=== PATIENT | male | born 1940 | race Caucasian/White ===

== ENCOUNTER → 2016-10-28 | Outpatient (CLI) | payer MEDICARE | END | disposition home or self-care (01) | LOC: PCVCIMAG 11:15 | PROVIDERS: ATTEND Internal Medicine Cardiovascular Disease | DX: I65.23 Occlusion and stenosis of bilateral carotid arteries (principal); I25.5 Ischemic cardiomyopathy; I10 Essential (primary) hypertension; E78.00 Pure hypercholesterolemia, unspecified | CPT/HCPCS: 93880 ==

== ENCOUNTER → 2016-10-29 | Outpatient (CLI) | payer MEDICARE | END | disposition home or self-care (01) | LOC: PCVCIMAG 08:54 | PROVIDERS: ATTEND Internal Medicine Cardiovascular Disease | DX: I25.10 Atherosclerotic heart disease of native coronary artery without angina pectoris (principal); I10 Essential (primary) hypertension; I25.5 Ischemic cardiomyopathy; E78.00 Pure hypercholesterolemia, unspecified; I65.29 Occlusion and stenosis of unspecified carotid artery; K55.9 Vascular disorder of intestine, unspecified; I74.8 Embolism and thrombosis of other arteries; R06.00 Dyspnea, unspecified; R55 Syncope and collapse; Z95.1 Presence of aortocoronary bypass graft | CPT/HCPCS: 80061; 93005; 93306; G0463 ==

== ENCOUNTER → 2016-11-03 | Outpatient (CLI) | payer MEDICARE ==
[~2016-11-03] MED LIST: DIAZEPAM 10 MG TABLET ONE; FENTANYL PF 100 MCG/2 ML VIAL. ONE; HEPARIN 5,000 UNIT/ML VIAL for PCVC ONE; HEPARIN for ARTERIAL LINE 1,500 ML ONE; IOHEXOL 300 MG/ML 100ML VIAL. ONE; IOHEXOL 350 MG/ML 100ML VIAL. ONE; IV NORMAL SALINE 1000ML BAG 1,000 ML ONE; LIDOCAINE 1% Multi-Dose 20 ML VIAL. ONE; MIDAZOLAM HCL 2 MG/2 ML VIAL. ONE; hydrALAZINE 20 MG/ML VIAL. ONE
== END | disposition home or self-care (01) ==
LOC: PCVCINTER 08:28
PROVIDERS: ATTEND Nuclear Medicine Nuclear Cardiology
DX: I70.213 Atherosclerosis of native arteries of extremities with intermittent claudication, bilateral legs (principal); I15.0 Renovascular hypertension; I70.1 Atherosclerosis of renal artery; I65.23 Occlusion and stenosis of bilateral carotid arteries; I70.0 Atherosclerosis of aorta; I25.10 Atherosclerotic heart disease of native coronary artery without angina pectoris; I42.9 Cardiomyopathy, unspecified; I10 Essential (primary) hypertension; I25.5 Ischemic cardiomyopathy; K55.9 Vascular disorder of intestine, unspecified; I74.8 Embolism and thrombosis of other arteries; E78.00 Pure hypercholesterolemia, unspecified; R06.00 Dyspnea, unspecified; R55 Syncope and collapse
CPT/HCPCS: 36223; 36225; 36245; 36252; 75630; 75726; 76937; 93459; C1751; C1760; C1769; C1894; J0360; J2250; J3010; J7030; Q9967; J1644

== ENCOUNTER → 2017-08-11 | Outpatient (CLI) | payer MEDICARE | END | disposition home or self-care (01) | LOC: PCVCCLINIC 09:30 | PROVIDERS: ATTEND Internal Medicine Cardiovascular Disease | DX: I25.10 Atherosclerotic heart disease of native coronary artery without angina pectoris (principal); I25.5 Ischemic cardiomyopathy; I10 Essential (primary) hypertension; E78.00 Pure hypercholesterolemia, unspecified; I65.29 Occlusion and stenosis of unspecified carotid artery; D64.9 Anemia, unspecified; R94.31 Abnormal electrocardiogram [ECG] [EKG]; I45.10 Unspecified right bundle-branch block; I45.2 Bifascicular block; Z87.891 Personal history of nicotine dependence; Z79.899 Other long term (current) drug therapy | CPT/HCPCS: 80061; 93005; G0463 ==

== ENCOUNTER → 2017-11-02 | Outpatient (CLI) | payer MEDICARE | END | disposition home or self-care (01) | LOC: PCVCCLINIC 11:38 | DX: I25.10 Atherosclerotic heart disease of native coronary artery without angina pectoris (principal); I10 Essential (primary) hypertension; I25.5 Ischemic cardiomyopathy; E78.00 Pure hypercholesterolemia, unspecified; I35.0 Nonrheumatic aortic (valve) stenosis; R94.31 Abnormal electrocardiogram [ECG] [EKG]; I45.10 Unspecified right bundle-branch block; Z87.891 Personal history of nicotine dependence; Z79.899 Other long term (current) drug therapy | CPT/HCPCS: 80061; 93005; 93880; G0463 ==

== ENCOUNTER → 2017-11-24 | Outpatient (CLI) | payer MEDICARE | END | disposition home or self-care (01) | LOC: PCVCCLINIC 12:04 | DX: I25.709 Atherosclerosis of coronary artery bypass graft(s), unspecified, with unspecified angina pectoris (principal); R07.9 Chest pain, unspecified; I42.9 Cardiomyopathy, unspecified; I10 Essential (primary) hypertension; E78.00 Pure hypercholesterolemia, unspecified; I65.29 Occlusion and stenosis of unspecified carotid artery; Z95.1 Presence of aortocoronary bypass graft; Z87.891 Personal history of nicotine dependence; Z79.899 Other long term (current) drug therapy | CPT/HCPCS: 93005; G0463 ==

== ENCOUNTER → 2018-04-29 | Outpatient (CLI) | payer MEDICARE ==
[~2018-04-29] MED LIST changes: -DIAZEPAM 10 MG TABLET ONE; -FENTANYL PF 100 MCG/2 ML VIAL. ONE; -HEPARIN 5,000 UNIT/ML VIAL for PCVC ONE; -HEPARIN for ARTERIAL LINE 1,500 ML ONE; -IOHEXOL 300 MG/ML 100ML VIAL. ONE; -IOHEXOL 350 MG/ML 100ML VIAL. ONE; -IV NORMAL SALINE 1000ML BAG 1,000 ML ONE; -LIDOCAINE 1% Multi-Dose 20 ML VIAL. ONE; -MIDAZOLAM HCL 2 MG/2 ML VIAL. ONE; +REGADENOSON 0.4 MG/5 ML DISP.SYRIN. IV ONE; -hydrALAZINE 20 MG/ML VIAL. ONE
--- NOTE | 2018-04-30 12:30 | PCVCIMAG ---
APPROVED REPORT Imaging Protocol: Rest Tc-99m/Stress Tc-99m 1 day Study performed: 04/29/2018 08:33:07 Indication: Chest pain with exertion, CAD, Abnormal EKG Patient Location: Out-Patient Stress Nurse: Gayle Paul RN, Soraya Jaffe RN DE Tech:JORDAN Sheikh Ht: 5 ft 10 in Wt: 180 lbs BSA: 2.00 m2 HR: 65 bpm BP: 200/90 mmHg BMI: 25.8 Rhythm: NSR, RBBB Medical History Medications: Atorvastin, Plavix, Ranexa Allergies: NTG Cardiac Risk Factors: Age, HTN, Hyperlipidemia, Tobacco History (Former), CAD, CVD Previous Cardiac Procedures: CABG MCNEAL-LAD, SVG-OM OM2, [place] Circ Intact from Heart Cath 2016 Pretest Chest Pain Characteristics: No chest pain Exercise History: Physically active Physical Disabilities: Legs Resting Data Rest SPECT myocardial perfusion imaging was performed in supine position 45 minutes following the intravenous injection of 11.7 mCi of Tc-99m Sestamibi. Time of rest injection: 829 Date: 04/29/2018 Administration Route: IV Administration Site: Right Hand Pharmacologic Stress Pharmacologic stress test was performed by injecting Regadenoson 0.4 mg IV push over 10-15 seconds immediately followed by the intravenous injection of 30.6 mCi of Tc-99m Sestamibi. Time of stress injection: 954 Date: 04/29/2018 Administration Route: IV Administration Site: Right Hand Gated Stress SPECT was performed 45 minutes after stress injection. The images were gated to evaluate regional wall motion and calculate left ventricular ejection fraction. Comments PRIOR NUC 07/2016: 1. SCINTIGRAPHIC EVIDENCE OF A LARGE REVERSIBLE LATERAL WALL DEFECT ASSOCIATED WITH WALL M OTION ABNORMALITIES CONSISTENT WITH ISCHEMIA 2. PRESERVED LVEF WITH INFEROLATERAL HYPOKINESIS Stress Test Details Stress Test: Pharmacologic stress was paired with low level exercise. HRMax Heart Rate (APMHR): 142 bpm Resting HR: 65 bpmTarget HR (85% APMHR): 120 bpm Max HR Achieved: 97 bpm % of APMHR: 68 Recovery HR: 80 bpm BP Resting BP: 200/90 mmHg Recovery BP: 169/78 mmHg ECG Resting ECG: Sinus Rhythm, RBBB Stress ECG: Sinus Rhythm, RBBB Arrhythmia: PVCs Recovery ECG: Sinus Rhythm, RBBB Clinical Reason for Termination: Completed protocol Stress Symptoms: Chest pain("tight", 3/10) Exercise duration: 4 min 00 sec Symptoms resolved with caffeine. Nurse Comments Reports chest tightness that resolved on recovery. Stress ECG Conclusion ECG: Non-ischemic Study Quality Study: Good Study Data Post stress, the left ventricular ejection was 53%.. SSS: 8 SRS: 1 SDS: 7 TID = 0.93. Perfusion Large sized area of moderate reversible ischemia involving the lateral/inferolateral left ventricle consistent with a circumflex distribution. Wall Motion Normal left ventricular size and function with no regional wall motion abnormalities. Nuclear Conclusion Large sized area of moderate reversible ischemia involving the lateral/inferolateral left ventricle consistent with a circumflex distribution has increased in area since July 2016. Normal left ventricular size and function with no regional wall motion abnormalities. Post stress, the left ventricular ejection was 53%. Interpreted by: Mateo Saldaña MD Electronically Approved: 04/29/2018 17:38:57 <Conclusion> ECG: Non-ischemic
== END | disposition home or self-care (01) ==
LOC: PCVCIMAG 12:51
PROVIDERS: ATTEND Internal Medicine Cardiovascular Disease
DX: I25.10 Atherosclerotic heart disease of native coronary artery without angina pectoris (principal); R07.9 Chest pain, unspecified; I10 Essential (primary) hypertension; E78.5 Hyperlipidemia, unspecified; R94.31 Abnormal electrocardiogram [ECG] [EKG]; Z87.891 Personal history of nicotine dependence
CPT/HCPCS: 78452; 93017; A9500; J2785

== ENCOUNTER → 2018-08-25 | Outpatient (CLI) | payer MEDICARE ==
--- NOTE | 2018-08-25 11:10 | PCVCIMAG ---
APPROVED REPORT Study performed: 08/25/2018 09:08:51 EXAM: Comprehensive 2D, Doppler, and color-flow Echocardiogram Patient Location: Echo lab Room #: 2Status: routine BSA: 1.97 HR: 65 bpm Rhythm: NSR with PACs Other Information Study Quality: Good Risk Factors: Cardiac Risk Factors: HTN, HTN Indications Aortic Valve Disease CAD S/P CABG 2D Dimensions IVSd: 7.53 (7-11mm)LVOT Diam: 20.57 (18-24mm) LVDd: 52.50 mm PWd: 8.37 (7-11mm) LVDs: 34.26 (25-40mm) Left Atrium: 49.47 (27-40mm) Aortic Root: 28.11 mm LV Single Plane 4CH: 56.06 % LV Single Plane 2CH: 60.77 % Biplane EF: 59.9 % Volumes Left Atrial Volume (Systole) Single Plane 4CH: 52.09 mLSingle Plane 2CH: 48.18 mL Biplane LA Volume: 55.00 mLLA ESV Index: 28.00 mL/m2 Aortic Valve AoV Peak Luis Eduardo.: 2.26 m/s AO Peak Gr.: 22.97 mmHgLVOT Max P.04 mmHg AO Mean Gr.: 11.57 mmHgLVOT Mean P.57 mmHg AO V2 Mean: 1.67 m/sLVOT Max V: 0.86 m/s AO V2 VTI: 48.96 cm ISAIAS (VTI): 1.28 [id number] V1 VTI: 18.88 cm ISAIAS Vmax: 1.26 cm2 Mitral Valve E/A Ratio: 1.0 MV Decel. Time: 254.40 ms MV E Max Luis Eduardo.: 0.69 m/s MV A Luis Eduardo.: 0.68 m/s MV PHT: 73.78 ms TDI E/Lateral E': 11.50E/Medial E': 11.50 Medial E' Luis Eduardo.: 0.06 m/s Lateral E' Luis Eduardo.: 0.06 m/s Pulmonary Valve PV Peak Luis Eduardo.: 0.98 m/sPV Peak Gr.: 3.85 mmHg Pulmonary Vein P Vein S: 0.66 m/sP Vein A: 0.28 m/s P Vein D: 0.37 m/sP Vein A Dur.: 114.2 msec P Vein S/D Ratio: 1.78 Tricuspid Valve TR Peak Luis Eduardo.: 2.33 m/s TR Peak Gr.: 21.69 mmHg TV Vmax: 0.65 m/sPA Pressure: 29.00 mmHg Left Ventricle The left ventricle is normal size. There is normal LV segmental wall motion. There is normal left ventricular wall thickness. Left ventricular systolic function is normal. The left ventricular ejection fraction is within the normal range. LVEF is 55-60%. The left ventricular diastolic function is normal. Right Ventricle The right ventricle is normal size. The right ventricular systolic function is normal. Atria The left atrium size is normal. The right atrium size is normal. Aortic Valve Aortic valve is trileaflet. Aortic valve leaflets are moderately sclerotic with decreased opening. No aortic regurgitation is present. Moderate aortic stenosis. Highest mean aortic valve gradient is 12_mmHg. Peak aortic valve gradient is 20_mmHg. Calculated ISAIAS by the continuity equation is _1.3 cm2. Mitral Valve The mitral valve is normal in structure. There is no mitral valve regurgitation noted. No evidence of mitral valve stenosis. Tricuspid Valve The tricuspid valve is normal in structure. Trace to mild tricuspid regurgitation with a PA pressure of 29 mmHg. Pulmonic Valve The pulmonary valve is normal in structure. There is no pulmonic valvular regurgitation. Great Vessels The aortic root is normal in size. Aortic arch is not well visualized. Aortic arch is not well visualized. IVC is normal in size and collapses >50% with inspiration. Pericardium There is no pericardial effusion. There is no pleural effusion. <Conclusion> The left ventricle is normal size. LVEF is 55-60%. The left ventricular diastolic function is normal. The right ventricle is normal size. The left atrium size is normal. Aortic valve is trileaflet. Aortic valve leaflets are moderately sclerotic with decreased opening. Moderate aortic stenosis. Highest mean aortic valve gradient is 12_mmHg. Peak aortic valve gradient is 20_mmHg. Calculated ISAIAS by the continuity equation is _1.3 cm2. There is no mitral valve regurgitation noted. Trace to mild tricuspid regurgitation with a PA pressure of 29 mmHg. The aortic root is normal in size. There is no pericardial effusion.
== END | disposition home or self-care (01) ==
LOC: PCVCIMAG 08:55
PROVIDERS: ATTEND Internal Medicine Cardiovascular Disease
DX: I35.0 Nonrheumatic aortic (valve) stenosis (principal); I25.10 Atherosclerotic heart disease of native coronary artery without angina pectoris; I10 Essential (primary) hypertension; I42.9 Cardiomyopathy, unspecified; E78.00 Pure hypercholesterolemia, unspecified; I65.23 Occlusion and stenosis of bilateral carotid arteries; R06.02 Shortness of breath; E78.5 Hyperlipidemia, unspecified; Z88.1 Allergy status to other antibiotic agents; Z95.1 Presence of aortocoronary bypass graft; Z87.891 Personal history of nicotine dependence; Z72.89 Other problems related to lifestyle
CPT/HCPCS: 36415; 80061; 93005; 93306; G0463

== ENCOUNTER → 2018-09-20 | Outpatient (CLI) | payer MEDICARE ==
--- NOTE | 2018-09-20 16:03 | PCVCIMAG ---
EXAM: BILATERAL CAROTID DUPLEX INDICATION: Carotid Occlusive Disease. FINDINGS: Doppler Measurements (centimeters per second): RIGHT: Peak CCA-55, Peak ECA-74, Diastolic ICA-19, Peak ICA-62, ICA/CCA Ratio-1.1. LEFT: Peak CCA-64, Peak ECA-67, Diastolic ICA-24, Peak ICA-77, ICA/CCA Ratio-1.2. RIGHT CAROTID: The carotid bulb has minimal plaque. The proximal internal carotid artery shows no significant stenosis. The common carotid artery shows no significant stenosis. The external carotid artery shows no significant stenosis. LEFT CAROTID: The carotid bulb has minimal plaque. The proximal internal carotid artery shows no significant stenosis. The common carotid artery shows no significant stenosis. The external carotid artery shows no significant stenosis. Antegrade flow in both vertebral arteries. IMPRESSION: No significant stenosis of the right internal carotid artery with minimal plaque. No significant stenosis of the left internal carotid artery with minimal plaque. LOC:[place] [id number]
--- NOTE | 2018-09-20 16:13 | PCVCIMAG ---
EXAM: ARTERIAL DUPLEX LEFT UPPER EXTREMITY INDICATION: Question of subclavian stenosis seen on heart catheterization. Peripheral arterial disease. FINDINGS: Left arm: Satisfactory to waveforms in the subclavian, axillar, brachial, radial, and ulnar arteries. No evidence of significant left subclavian artery stenosis. Right arm blood pressure 136/70 mmHg and left arm blood pressure 146/72 mmHg. IMPRESSION: No evidence of significant arterial stenosis in the left upper extremity as detailed above. LOC:[id number]
== END | disposition home or self-care (01) ==
LOC: PCVCIMAG 15:24
PROVIDERS: ATTEND Internal Medicine Cardiovascular Disease
DX: I25.10 Atherosclerotic heart disease of native coronary artery without angina pectoris (principal); I10 Essential (primary) hypertension; I77.1 Stricture of artery; I65.23 Occlusion and stenosis of bilateral carotid arteries; R00.1 Bradycardia, unspecified; I73.9 Peripheral vascular disease, unspecified; E78.00 Pure hypercholesterolemia, unspecified; Z87.891 Personal history of nicotine dependence
CPT/HCPCS: 93005; 93880; 93931; G0463

== ENCOUNTER → 2019-04-06 | Outpatient (CLI) | payer MEDICARE | END | disposition home or self-care (01) | LOC: PCVCCLINIC 09:50 | PROVIDERS: ATTEND Internal Medicine Cardiovascular Disease | DX: I25.10 Atherosclerotic heart disease of native coronary artery without angina pectoris (principal); E78.00 Pure hypercholesterolemia, unspecified; I10 Essential (primary) hypertension; K55.1 Chronic vascular disorders of intestine; I42.9 Cardiomyopathy, unspecified; Z87.891 Personal history of nicotine dependence | CPT/HCPCS: 36415; 80061; 93005; G0463 ==

== ENCOUNTER → 2019-05-18 | Outpatient (CLI) | payer MEDICARE ==
--- NOTE | 2019-05-18 15:51 | PCVCIMAG ---
EXAM: MESENTERIC ARTERIAL DUPLEX INDICATION: Mesenteric Atherosclerosis. FINDINGS: Celiac Damar: Unchanged chronic occlusion. Superior Mesenteric Artery: No flow limiting stenosis. No branch vessel stenosis. Inferior Mesenteric Artery: No flow limiting stenosis. No branch vessel stenosis. Mesenteric veins are patent where seen. IMPRESSION: Unchanged chronic occlusion celiac axis. Superior mesenteric artery and inferior mesenteric artery maintaining satisfactory patency. LOC:[id number]
== END | disposition home or self-care (01) ==
LOC: PCVCIMAG 10:55
PROVIDERS: ATTEND Internal Medicine Cardiovascular Disease
DX: K55.1 Chronic vascular disorders of intestine (principal)
CPT/HCPCS: 93975